=== PATIENT | female | born 1940 | race Asian ===

== ENCOUNTER 2017-05-15 00:01 | Emergency (ER) | payer OTHER ==
[~2017-05-15] VITALS: Ht 157.5 cm; Wt 58.1 kg
[2017-05-15 00:20] VITALS: BP 124/67
[2017-05-15] MEDS ORDERED: Morphine Sulfate 2mg/ml Inj IVP ONE ×2 (00:30→03:30)
--- NOTE | 2017-05-15 00:50 | Emergency Room Report ---
History of Present Illness General Chief Complaint: Abdominal Pain Source: Patient, Family Member Present Illness HPI This is a 76-year-old [place] female with history hypertension. She presents with chief point abdominal pain. Onset was a few hours ago. This occurred after eating. Complaining of severe sharp pain in the mid abdomen. Has nausea vomiting. No diarrhea. Similar symptom 2 weeks ago that resolved on its own. No previous surgery. No fever or chills. Vomiting is nonbloody and nonbilious. No urinary complaint. Pain is 10 out of 10. Allergies: Coded Allergies: No Known Allergies (Unverified , 05/14/17) Patient History Past Medical History: see triage record, old chart reviewed, HTN Past Surgical History: none Pertinent Family History: none Social History: Denies: smoking Last Menstrual Period: none Now: No Immunizations: other Reviewed Nursing Documentation: PMH: Agreed, PSxH: Agreed Nursing Documentation-PMH Hx Hypertension: Yes Review of Systems Eye: Denies: eye pain, blurred vision ENT: Denies: ear pain, nose congestion, throat swelling Respiratory: Denies: cough, shortness of breath Cardiovascular: Denies: chest pain, palpitations Gastrointestinal: Reports: abdominal pain, nausea, vomiting, Denies: diarrhea Musculoskeletal: Denies: back pain, joint pain Skin: Denies: rash Neurological: Denies: headache, numbness Endocrine: Denies: increased thirst, increased urine Hematologic/Lymphatic: Denies: easy bruising All Other Systems: negative except mentioned in HPI Physical Exam Vital Signs Date Time Temp Pulse Resp B/P (MAP) Pulse Ox O2 Delivery O2 Flow Rate FiO2 05/14/17 23:55 97.3 80 18 124/67 98 Room Air 97.3 vitals normal Sp02 EP Interpretation: reviewed, normal General Appearance: well appearing, no apparent distress, alert Head: normocephalic, atraumatic Eyes: bilateral eye PERRL, bilateral eye EOMI ENT: hearing grossly normal, normal pharynx Neck: full range of motion, supple, no meningismus Respiratory: chest non-tender, lungs clear, normal breath sounds Cardiovascular #1: regular rate, rhythm, no murmur Gastrointestinal: no mass, no organomegaly, no bruit, non-distended, tenderness - periumbilical, decreased bowel sounds Musculoskeletal: back normal, gait/station normal, normal range of motion Psychiatric: mood/affect normal Skin: warm/dry Medical Decision Making Diagnostic Impression: Primary Impression: Abdominal pain Qualified Codes: R10.13 - Epigastric pain Additional Impression: Cholelithiasis Qualified Codes: K80.20 - Calculus of gallbladder without cholecystitis without obstruction ER Course Patient with abdominal pain. Labs unremarkable. She is pain-free now. CT scan only show gallstone. We'll discharge home. Lab Results Impression labs normal CT/MRI/US Diagnostic Results CT/MRI/US Diagnostic Results : Imaging Test Ordered: CT abdomen and pelvis Impression Read by radiologist. Gallstone. Last Vital Signs Date Time Temp Pulse Resp B/P (MAP) Pulse Ox O2 Delivery O2 Flow Rate FiO2 05/14/17 23:55 97.3 80 18 124/67 98 Room Air 97.3 Status: improved Disposition: HOME, SELF-CARE Condition: Stable Scripts Acetaminophen With Codeine (T#3) (TYLENOL #3 TAB*) Y Tab 1 TAB ORAL Q8H Y for For Pain, #20 TAB Prov: NEIL FOX M.D. 05/15/17 Additional Instructions: Follow-up with your doctor in 2-3 days. You may need a referral to see a surgeon. If you never had a colonoscopy done, you will need one done to rule out colon cancer. Return if symptoms worsen. NEIL FOX M.D. May 15, 2017 00:50
[2017-05-15 00:54] LABS: BASOPHILS % (AUTO) 0.9 % (0.0-2.0); EOSINOPHILS % (AUTO) 0.4 % (0.0-3.0); HEMATOCRIT 41.8 % (37.0-47.0); HEMOGLOBIN 14.1 G/DL (12.0-16.0); LYMPHOCYTES % (AUTO) 14.3 % (20.0-45.0); MEAN CORPUSCULAR VOLUME 94 FL (80-99); MONOCYTES % (AUTO) 3.1 % (1.0-10.0); NEUTROPHILS % (AUTO) 81.4 % (45.0-75.0); PLATELET COUNT 306 K/UL (150-450); RED BLOOD COUNT 4.44 M/UL (4.20-5.40); RED CELL DISTRIBUTION WIDTH 11.3 % (11.6-14.8); WHITE BLOOD COUNT 9.9 K/UL (4.8-10.8)
[2017-05-15 01:01] LABS: ANION GAP 11 mmol/L (5-15); BLOOD UREA NITROGEN 15 mg/dL (7-18); CALCIUM 9.6 MG/DL (8.5-10.1); CARBON DIOXIDE 25 MMOL/L (21-32); CHLORIDE 103 MMOL/L (98-107); POTASSIUM 3.8 MMOL/L (3.5-5.1); SODIUM 139 MMOL/L (136-145)
[2017-05-15 01:06] LABS: ALANINE AMINOTRANSFERASE 30 U/L (12-78); ALBUMIN 4.1 G/DL (3.4-5.0); ALBUMIN/GLOBULIN RATIO 0.9 (1.0-2.7); ALKALINE PHOSPHATASE 89 U/L (46-116); ASPARTATE AMINO TRANSFERASE 23 U/L (15-37); BILIRUBIN,TOTAL 0.5 MG/DL (0.2-1.0)
[2017-05-15 01:12] LABS: INR 0.9 (0.9-1.1)
[2017-05-15 01:12] LABS: APPEARANCE,URINE CLEAR; BILIRUBIN, URINE NEGATIVE (NEGATIVE); COLOR,URINE PALE YELLOW; GLUCOSE, URINE (UA) NEGATIVE (NEGATIVE); KETONES,URINE 2+ (NEGATIVE); LEUKOCYTE ESTERASE ,URINE NEGATIVE (NEGATIVE); NITRITE,URINE NEGATIVE (NEGATIVE); PH,URINE 8 (4.5-8.0); PROTEIN,URINE NEGATIVE (NEGATIVE); UROBILINOGEN,URINE NORMAL MG/DL (0.0-1.0)
[2017-05-15 02:39] VITALS: BP 132/68
[2017-05-15] MEDS ORDERED: ACETAMINOPHEN-1 EAC1 ORAL (02:44)
[2017-05-15] MEDS ORDERED: Ketorolac 30mg Inj IV ONE (03:00)
[2017-05-15 04:24] VITALS: BP 127/62
--- NOTE | 2017-05-15 15:04 | Diagnostic Imaging Report ---
Indication: Abdominal pain Technique: CT of the abdomen and pelvis utilizing automated exposure control with intravenous contrast. Venous scanning performed. CT dose: Total DLP 681.71 mGycm; CTDI vol 14.12 mGy Comparison: None Findings: Minimal dependent atelectatic changes noted in the imaged lower lungs. Heart size is within normal limits. No appreciable pericardial effusion. A 5 mm gallstone is noted within the gallbladder neck/cystic duct (series 3 image #25). There is no CT evidence to suggest an acute cholecystitis. There is dilatation of the common bile duct up to 12 mm. There is some central intrahepatic biliary ductal dilatation. No appreciable common bile duct stone is seen on CT however CT is not the most sensitive evaluation. There is a 1.2 cm focus of enhancement in segment IV A which may represent a vascular perfusion phenomenon. Spleen, adrenal glands and pancreas are grossly unremarkable. There is no evidence of pancreatic ductal dilatation of multiple renal cysts are noted, with the largest arising from the upper pole of the left kidney measuring up to 5.7 cm. No evidence of hydronephrosis bilaterally. Some high attenuation material noted along the right posterior lateral aspect of the bladder likely related to a excretion of contrast. There is no evidence of bowel obstruction or inflammation. No free intraperitoneal fluid or air. Abdominal aorta is normal in caliber with atherosclerotic calcification. No pathologically enlarged lymphadenopathy. No acute osseous abnormality. IMPRESSION: Cholelithiasis with calcified gallstone at the gallbladder neck/cystic duct. No CT evidence to suggest an acute cholecystitis. Dilatation of the common bile duct to 12 mm and mild intrahepatic biliary duct dilatation. These findings suggest choledocholithiasis, although this is not definitively seen on CT. Correlation with MRCP or ERCP may be indicated. Additional findings as above. This is somewhat discrepant from the preliminary report issued by the [facility] radiologist. Findings of final report discussed with Dr. Linares of the ED the afternoon of 05/15/[address] scanner at [facility] is accredited by the [employer] and the scans are performed using protocols designed to limit radiation exposure to as low as reasonably achievable to attain images of sufficient resolution adequate for diagnostic evaluation.
== END 2017-05-15 04:24 | disposition home or self-care (01) ==
LOC: EDBD 00:01 → EMR 03:37
DX: K80.20 Calculus of gallbladder without cholecystitis without obstruction (principal); I10 Essential (primary) hypertension
CPT/HCPCS: 36415; 74177; 80053; 81003; 83690; 85025; 85610; 85730; 96374; 96375; 99284; J1885; J2270; J2405; Q9967